=== PATIENT | male | born 1995 | race Caucasian/White ===

== ENCOUNTER 2020-03-04 21:14 | Emergency (ER) | payer OTHER ==
[2020-03-04 22:38] LABS: ACETAMINOPHEN <2.0 ug/mL; BLOOD UREA NITROGEN,BUN 13 mg/dL (7.0-18.0); CARBON DIOXIDE,CO2 29.1 mmol/L (21.0-32.0); CHLORIDE,CL 99 mmol/L (98-107); GLUCOSE RANDOM 105 mg/dL (74-106); SODIUM,NA 137 mmol/L (136-148)
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
== END 2020-03-04 23:41 ==
LOC: MW.ED 21:14
DX: R45.851 Suicidal ideations (principal)
CPT/HCPCS: 36415; 80053; 80305-QW; 80307; 81003; 83735; 84443; 85025; 93005; 99285-25